=== PATIENT | male | born 1970 | race Caucasian/White ===

== ENCOUNTER 2020-07-22 08:54 | Outpatient (REF) | payer BC, SELFPAY ==
[2020-07-22 10:05] LABS: Hematocrit 47.6 % (42-52); Hemoglobin 16.3 g/dl (14.0-18.0); Mean Corpuscular HGB Conc 34.2 g/dl (31.0-36.0); Mean Corpuscular Hemoglobin 32.1 pg (27.0-33.0); Mean Corpuscular Volume 93.7 fL (80-98); Mean Platelet Volume 9.9 fL (9.4-12.4); Platelet Count 165 X10*3/uL (160-400); Red Blood Count 5.08 X10*6/uL (4.60-5.80); Red Cell Distribution Width 11.9 % (11.0-16.0); White Blood Count 4.8 X10*3/uL (4.8-10.8)
[2020-07-22 10:15] LABS: Estimated Average Glucose 88 mg/dL; Hemoglobin A1c % 4.7 %
[2020-07-22 10:38] LABS: Alanine Aminotransferase 33 U/L (0-40); Albumin Level 4.3 g/dL (3.5-5.0); Alkaline Phosphatase 50 U/L (39-117); Anion Gap 12 (12-20); Aspartate Amino Transferase 21 U/L (5-37); Blood Urea Nitrogen 19 mg/dL (9-16); Calcium 8.9 mg/dL (8.4-10.2); Carbon Dioxide 25 mmol/L (22-29); Chloride 108 mmol/L (96-108); Cholesterol 235 mg/dL; Estimated Glomerular Filt Rate > 60; Glucose Fasting 95 mg/dL (60-99); HDL Cholesterol 36 mg/dL; LDL Cholesterol Calculated 181 mg/dl; Potassium 4.2 mmol/L (3.3-5.1); Sodium 141 mmol/L (135-145); Total Protein 7.2 g/dL (6.5-8.0); Triglycerides 93 mg/dL
[2020-07-22 11:06] LABS: TSH reflex Free T4 0.84 uIU/mL (0.32-4.0)
== END 2020-07-22 08:55 | disposition home or self-care (01) ==
LOC: HO.LAB 08:54
PROVIDERS: PCP Physician Assistant; Visit Provider Physician Assistant
DX: I10 Essential (primary) hypertension (principal); Z13.1 Encounter for screening for diabetes mellitus; Z13.220 Encounter for screening for lipoid disorders; Z13.29 Encounter for screening for other suspected endocrine disorder
CPT/HCPCS: 36415; 80053; 80061; 83036; 84443; 85027

== ENCOUNTER → 2020-07-28 08:16 | Outpatient (REF) | payer BC, SELFPAY ==
--- NOTE | 2020-07-28 08:19 | CA_ITS ---
Acquisition Time: 2020-07-28 08:27:59 Total Exercise Time: 00:10:24 Test Indications: Chest Pain Medications: NONE Protocol: MORRIS Max HR: 160 BPM 92% of Pred: 173 BPM Max BP: 184/080 mmHG Max Work Load: 12.3 METS Exercise stress test using Morris protocol, total of 10 min 24 sec. METS 12.30, TAPHR up to 92 %. Pt tolerated well, denies any anginal sx. EKG with occ. PVC's. No ischemic changes seen during exercise or in recovery. Normotensive response to exercise. Test reviewed with Dr. Jenkins. Referred By: Azam Talavera Overread By:
== END ==
LOC: HO.CARD 08:16
PROVIDERS: Visit Provider Physician Assistant
DX: R07.89 Other chest pain (principal)
CPT/HCPCS: 93016; 93017; 93018

== ENCOUNTER → 2020-08-08 14:10 | Outpatient (BNVA) | payer BC, SELFPAY | PROVIDERS: PCP Physician Assistant; Visit Provider Nurse Practitioner Family ==

== ENCOUNTER 2020-09-13 10:06 | Day surgery (SDC) | payer BC, SELFPAY ==
[2020-09-06 14:52] VITALS: BMI 35.3
--- NOTE | 2020-09-08 15:06 | HO.ANESPROP2 ---
Documented by User: Fang Guthrie 09/08/20 15:06 HPI - Anesthesia Eval Consult details Narrative: 50yo M for Colonoscopy PMFSH Active Problems Active Problems: All Active Problems (Updated 09/06/20 @ 14:54 by Makenna Mathew) Annual physical exam (Acute) Family history of heart disease (Acute) Family history of colon cancer (Acute) Screening for diabetes mellitus (DM) (Acute) Screening for hypercholesterolemia (Acute) Screening for hypothyroidism (Acute) Atypical chest pain (Acute) Past Medical History Medical History Atypical chest pain Family History Family History Father Colon cancer Myocardial infarction Mother Alcohol abuse Multiple sclerosis Maternal Uncle Myocardial infarction Surgical History Surgical History History of knee surgery Hx of rhinoplasty Social History Social History Alcohol intake: current Alcohol intake frequency: holidays/special occasions only Smoking Status: Never smoker Advance Directives Information Provided: No Current occupational status: employed 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 Meds Allergies Allergy/AdvReac Type Severity Reaction Status Date / Time No Known Allergies Allergy Verified 08/08/20 14:11 Exam Exam Date and Time: September 08, 2020 1506 Height,Weight and Vital Signs: Height 5 ft 10 in Weight 111.584 kg Narrative Narrative: 07/2020 Exercise stress Protocol: WIN Max HR: 160 BPM 92% of Pred: 173 BPM Max BP: 184/080 mmHG Max Work Load: 12.3 METS Exercise stress test using Win protocol, total of 10 min 24 sec. METS 12.30, TAPHR up to 92 %. Pt tolerated well, denies any anginal sx. EKG with occ. PVC's. No ischemic changes seen during exercise or in recovery. Normotensive response to exercise. Assessment and Plan Assessment Anesthesia Assessment: Chart Reviewed Documented by User: Hillary Corona 09/13/20 11:09 [facility] Past Medical History Medical History Atypical chest pain Family History Family History Father Colon cancer Myocardial infarction Mother Alcohol abuse Multiple sclerosis Maternal Uncle Myocardial infarction Surgical History Surgical History History of knee surgery Hx of rhinoplasty Social History Social History Alcohol intake: current Alcohol intake frequency: holidays/special occasions only Smoking Status: Never smoker Advance Directives Information Provided: No Current occupational status: employed 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 Meds Allergies Allergy/AdvReac Type Severity Reaction Status Date / Time No Known Allergies Allergy Verified 08/08/20 14:11 Exam Airway Mallampati Class: II TM Dist: >3cm Neck ROM: Full Heart: RRR Lungs: CTA Assessment and Plan Assessment Anesthesia Assessment: Anesthesia Plan Discussed and Chart Reviewed Final Anesthetic Review NPO: Yes ASA Class: I Final Preanesthetic Review: Meds/Allgs Chart Reviewed, Consent Obtained/Reviewed and Anes Risks/Benef Reviewed Patient Risk: Low Procedure Risk: Low Anesthetic Plan Anesthetic Plan: MAC: Disposition: Standard PACU
[2020-09-13 10:33] VITALS: BP 140/87; PULSE 61; RESP 16; TEMP 36.2; O2SAT 96
[2020-09-13] MEDS: Lactated Ringers 1,000 ML 100 ML IVCONT (10:42)
--- NOTE | 2020-09-13 10:43 | PC.NURSE ---
Patient finished second half of prep this morning at 0600. States it was about 32oz and was finished by 0630. An[address] Corona notified. To proceed with procedure as scheduled.
--- NOTE | 2020-09-13 11:12 | MHC.SHP ---
Pre-Procedural Eval Section B Chief Complaint: Fhx of Colon Cancer Details of Present Illness: COLON CANCER SCREENING, FATHER WITH COLON CANCER IN HIS 50'S Relevant Family History (Specify if Yes): Yes Relevant Social History: None Present Medications: None Medical History: No relevant PMH History of Previous Operations: No relevant previous surgery Allergies: Allergies Allergy/AdvReac Type Severity Reaction Status Date / Time No Known Allergies Allergy Verified 08/08/20 14:11 Review of Systems Sugical H&P ROS: Negative: Constitution, Respiratory, Gastrointestinal, Musculoskeletal and Endocrine and Yes, Specify: Cardiovascular (Recent stress test: neg--atypical CP) Exam Surgical H&P Exam: Normal: HEENT, Normal: Heart, Normal: Lungs, Normal: Extremities, Normal: Abdomen and Normal: Skin Plan Diagnosis/Plan: Unchanged I have reviewed the history and physical and performed a pertinent physical examination on my patient. No changes have occurred unless specified.yes
[2020-09-13 11:46] VITALS: BP 121/74; PULSE 65; RESP 18; TEMP 36.5; O2SAT 97
--- NOTE | 2020-09-13 11:46 | PM.OP ---
Brief Operative Note Date of Service: 09/13/20 Pre-op diagnosis: COLON CANCER SCREENING: HIGH RISK-FATHER WITH COLON CANCER. Post-op diagnosis: other (NEGATIVE EXAM) Procedure: COLONOSCOPY Implants: NONE Surgeon: Magnolia Ayala MD Anesthesia: MAC (MD CINDY) Estimated blood loss (mL): 0 Pathology: none sent Condition: stable Disposition: PACU
--- NOTE | 2020-09-13 11:48 | PM.OP ---
Brief Operative Note Date of Service: 09/13/20 Surgeon: Magnolia Ayala MD this was pulled up in error, already completed. Estimated blood loss (mL): 0
--- NOTE | 2020-09-13 11:50 | W.PM.OPN ---
Operative Note Operative Note Date of Service: 09/13/20 Narrative: Pre-op diagnosis: COLON CANCER SCREENING: HIGH RISK-FATHER WITH COLON CANCER. Post-op diagnosis: other (NEGATIVE EXAM) Procedure: COLONOSCOPY Implants: NONE Surgeon: Magnolia Ayala MD Anesthesia: MAC (MD CINDY) FINDINGS: NAVID: Prostate normal Adult slim colonoscope introduced without difficulty advanced through sigmoid, descending, transverse colon through hepatic flexure and into ascending colon. With gentle repositioning of scope cecum was entered--Appendiceal orifice was seen, ileocecal valve was seen. PREP: Good to excellent. Slow withdrawal of scope. Good rotational views, no lesions were seen. ARV was clear. Estimated blood loss (mL): 0 Pathology: none sent Condition: stable Disposition: PACU PLAN: REPEAT SCREENING IN 5 YEARS DUE TO FAMILY HX IN HIS FATHER.
[2020-09-13 12:00] VITALS: BP 118/75; PULSE 60; RESP 16; TEMP 36.5; O2SAT 96
== END 2020-09-13 12:31 | disposition home or self-care (01) ==
PROVIDERS: PCP Physician Assistant; Visit Provider Internal Medicine Gastroenterology
PROC: 0DJD8ZZ Inspection of Lower Intestinal Tract, Via Natural or Artificial Opening Endoscopic (ICD-10-PCS; CPT 45378; principal; 2020-09-13 11:50)
DX: Z12.11 Encounter for screening for malignant neoplasm of colon (principal); Z80.0 Family history of malignant neoplasm of digestive organs
CPT/HCPCS: 45378

== ENCOUNTER 2021-04-06 21:49 | Emergency (ER) | payer BC, SELFPAY ==
--- NOTE | 2021-04-06 | ECG_ITS ---
Test Reason : CP Blood Pressure : / mmHG Vent. Rate : 083 BPM Atrial Rate : 083 BPM P-R Int : 140 ms QRS Dur : 096 ms QT Int : 378 ms P-R-T Axes : 054 -58 119 degrees QTc Int : 444 ms Normal sinus rhythm Left anterior fascicular block Moderate voltage criteria for LVH, may be normal variant ( R in aVL , Junior product ) T wave abnormality, consider anterolateral ischemia Abnormal ECG No previous ECGs available Referred By: Generic ED Physician Electronically Signed By:JOSESITO AU MD
--- NOTE | ~2021-04-06 | XR_ITS ---
EXAMINATION: XR CHEST CLINICAL INFORMATION: Chest pain COMPARISON: None TECHNIQUE: Frontal view of the chest was obtained. FINDINGS: Cardiac leads overlie the chest. The lungs are well expanded. There is no focal consolidation, edema, or effusion. No pneumothorax. The cardiomediastinal silhouette is within normal limits. No acute osseous abnormality. XR/XR chest 1V IMPRESSION: Clear lungs.
[2021-04-06 21:51] VITALS: BP 193/130; PULSE 92; RESP 18; TEMP 36.8; O2SAT 98; BMI 34.1
[2021-04-06 21:55] VITALS: BP 179/115
--- NOTE | 2021-04-06 21:57 | PC.NURSE ---
bp done initially on left arm then repeated on rt arm
[2021-04-06 22:00] VITALS: BP 165/113; PULSE 97; RESP 18; TEMP 36.8; O2SAT 94
--- NOTE | 2021-04-06 22:21 | ED_ITS ---
HPI - Chest Pain General Chief Complaint: Chest Pain Stated Complaint: cp Time Seen by Provider: 04/06/21 22:04 Source: patient Mode of arrival: ambulatory History of Present Illness HPI narrative: 50-year-old male presents with constant chest pain/pressure that is radiating into his left arm and started while he was sitting watching TV and he rated at a 9/10 not associated with dizziness, diaphoresis, nausea, but states he has been having associated shortness of breath. He states the pain is now at 3/10 but in this is that over the past 2 weeks he was having similar pain that initially was only occurring during exertion however over the past week this has been occurring while at rest. He was recently prescribed a blood pressure medication as well as a statin that has not been picked up from the pharmacy yet. He does have a positive family history for MD in his father at a similar age. Related Data Previous Rx's Medication Instructions Recorded lisinopril 10 mg tablet 10 mg PO DAILY 30 Days #30 tab 04/04/21 simvastatin 20 mg tablet 20 mg PO DAILY 30 Days #30 tab 04/04/21 Allergies Allergy/AdvReac Type Severity Reaction Status Date / Time No Known Allergies Allergy Verified 04/06/21 21:51 Review of Systems Review of Systems: Pertinent positives and negatives as stated in HPI 10 point review of systems is otherwise negative. [facility] Past Medical History Source: nursing notes reviewed Medical History Atypical chest pain Surgical History History of knee surgery Hx of rhinoplasty Family History Family History Father Colon cancer Myocardial infarction Mother Alcohol abuse Multiple sclerosis Maternal Uncle Myocardial infarction Social History Social History Housing: House Alcohol intake: unknown Patient Tobacco Use Status: Never used Tobacco e-Cigarette/Vaping Use: Never Used Second Hand Smoke Exposure: No Use of substances other than those prescribed or required for medical reasons: No Advance Directives: No Advance Directives Information Provided: No Current occupational status: employed 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 Physical Exam Vital Signs: Vital Signs: Last Vital Signs Temp 98.3 F 04/06/21 22:00 Pulse 94 04/06/21 22:52 Resp 18 04/06/21 22:00 BP 156/93 H 04/06/21 22:52 Pulse Ox 94 04/06/21 22:00 Body Mass Index 34.1 VITAL SIGNS: Reviewed. GENERAL: Well developed, well nourished, in no acute distress. HEAD: Normocephalic/atraumatic EYES: PERRLA, EOMI LUNGS: Normal breath sounds. SpO2<98> CARDIOVASCULAR: Regular rate and rhythm without noted murmurs, no JVD or lower extremity edema. ABDOMEN: Soft, non-tender, non-distended with bowel sounds. SKIN: Inspection of the skin reveals no rashes NEUROLOGIC: Alert and oriented x 4. Course Course Course Narrative: History and clinical presentation concerning for EKG changes in the setting chest pain that would suggest at a minimum unstable angina/ACS with concerns for Q-waves in V2 for possible Wellens with as well as multiple T- wave inversions in V4/V5. Patient was provided with 324 mg of aspirin, placed on the EKG, labs were obtained. His blood pressure was noted to remain elevated in will be provided with medication to reduce the blood pressure and labs sent. Cardiology will be paged. Review of all investigations significant for elevated troponin Reevaluation(s) Reevaluation #1: Discussed the case with on-call Cardiology who recommends activating STEMI. Patient given aspirin, Brilinta, heparin. Time: 22:39 Reevaluation #2: Discussed case with p.m. see interventional cardiology. Recom mendation for sublingual nitro and if pain-free will go to CCU otherwise will go to the flue dust laborer. Recommends starting nitro drip Time: 22:42 MDM - Chest Pain Lab Data Result diagrams: 04/06/21 22:26 04/06/21 22:26 Labs: Lab Results 04/06/21 04/06/21 04/06/21 Range/Units 22:26 22:26 22:26 WBC 9.6 (4.8-10.8) X10*3/uL RBC 6.11 H (4.60-5.80) X10*6/uL Hgb 19.5 H (14.0-18.0) g/dl Hct 56.2 H (42.0-52.0) % MCV 92.0 (80.0-98.0) fL MCH 31.9 (27.0-33.0) pg MCHC 34.7 (31.0-36.0) g/dl RDW 12.2 (11.0-16.0) % Plt Count 185 (160-400) X10*3/uL MPV 9.5 (9.4-12.4) fL Immature Gran % (Auto) 0.3 (0.0-0.4) % Neut % (Auto) 56.9 (45-73) % Lymph % (Auto) 30.7 (20-40) % Lea % (Auto) 10.3 (2-11) % Eos % (Auto) 1.5 (0-4) % Baso % (Auto) 0.3 (0-2) % Lymph # (Auto) 3.0 (1.2-4.9) X10*3/uL Lea # (Auto) 1.0 (0.1-1.2) X10*3/uL Eos # (Auto) 0.1 (0.0-0.4) X10*3/uL Baso # (Auto) 0.0 (0.0-0.2) X10*3/uL Abs Immat Gran (auto) 0.03 (0.00-0.03) X10*3/uL Absolute Neuts (auto) 5.5 (2.0-8.3) x10*3/uL Absolute Nucleated RBC 0.000 (0.0-0.012) X10*3/uL Nucleated RBC % (auto) 0.0 (0.0-0.2) /100WBC PT 12.1 (9.9-13.0) SEC INR 1.1 (0.9-1.1) APTT 35.5 (24.1-38.0) SEC Sodium 138 (135-145) mmol/L Potassium 4.3 (3.3-5.1) mmol/L Chloride 101 (96-108) mmol/L Carbon Dioxide 27 (22-29) mmol/L Anion Gap 14 (12-20) BUN 15 (9-16) mg/dL Creatinine 1.22 (0.5-1.4) mg/dL Estim Creat Clear Calc 91.1 Estimated GFR > 60 Random Glucose 106 (60-115) mg/dL Calcium 9.5 D (8.4-10.2) mg/dL Total Bilirubin 0.8 (0.0-1.0) mg/dL AST 65 H (5-37) U/L ALT 33 (0-40) U/L Alkaline Phosphatase 60 (39-117) U/L Troponin I High Sens (<3.5-35.0) ng/L Total Protein 8.3 H (6.5-8.0) g/dL Albumin 4.5 (3.5-5.0) g/dL Urine Color Urine Appearance Urine pH (5.0-8.0) Ur Specific [place] (1.005-1.025) Urine Protein (NEG-TRACE) MG/DL Urine Glucose (UA) (NEG) MG/DL Urine Ketones (NEG) MG/DL Urine Blood (NEG) Urine Nitrite (NEG) Ur Leukocyte Esterase (NEG) Urine RBC (0) /HPF Urine WBC (0-4) /HPF Ur Squamous Epith Cells /LPF Calcium Oxalate Crystal /LPF Urine Bacteria /LPF Urine Yeast /HPF Ethyl Alcohol mg/dL COVID-19 (BRIT) (Negative) COVID-19 Clin Com 04/06/21 04/06/21 04/06/21 Range/Units 22:26 22:26 22:26 WBC (4.8-10.8) X10*3/uL RBC (4.60-5.80) X10*6/uL Hgb (14.0-18.0) g/dl Hct (42.0-52.0) % MCV (80.0-98.0) fL MCH (27.0-33.0) pg MCHC (31.0-36.0) g/dl RDW (11.0-16.0) % Plt Count (160-400) X10*3/uL MPV (9.4-12.4) fL Immature Gran % (Auto) (0.0-0.4) % Neut % (Auto) (45-73) % Lymph % (Auto) (20-40) % Lea % (Auto) (2-11) % Eos % (Auto) (0-4) % Baso % (Auto) (0-2) % Lymph # (Auto) (1.2-4.9) X10*3/uL Lea # (Auto) (0.1-1.2) X10*3/uL Eos # (Auto) (0.0-0.4) X10*3/uL Baso # (Auto) (0.0-0.2) X10*3/uL Abs Immat Gran (auto) (0.00-0.03) X10*3/uL Absolute Neuts (auto) (2.0-8.3) x10*3/uL Absolute Nucleated RBC (0.0-0.012) X10*3/uL Nucleated RBC % (auto) (0.0-0.2) /100WBC PT (9.9-13.0) SEC INR (0.9-1.1) APTT (24.1-38.0) SEC Sodium (135-145) mmol/L Potassium (3.3-5.1) mmol/L Chloride (96-108) mmol/L Carbon Dioxide (22-29) mmol/L Anion Gap (12-20) BUN (9-16) mg/dL Creatinine (0.5-1.4) mg/dL Estim Creat Clear Calc Estimated GFR Random Glucose (60-115) mg/dL Calcium (8.4-10.2) mg/dL Total Bilirubin (0.0-1.0) mg/dL AST (5-37) U/L ALT (0-40) U/L Alkaline Phosphatase (39-117) U/L Troponin I High Sens 2031.6 H* (<3.5-35.0) ng/L Total Protein (6.5-8.0) g/dL Albumin (3.5-5.0) g/dL Urine Color Urine Appearance Urine pH (5.0-8.0) Ur Specific [place] (1.005-1.025) Urine Protein (NEG-TRACE) MG/DL Urine Glucose (UA) (NEG) MG/DL Urine Ketones (NEG) MG/DL Urine Blood (NEG) Urine Nitrite (NEG) Ur Leukocyte Esterase (NEG) Urine RBC (0) /HPF Urine WBC (0-4) /HPF Ur Squamous Epith Cells /LPF Calcium Oxalate Crystal /LPF Urine Bacteria /LPF Urine Yeast /HPF Ethyl Alcohol < 10 mg/dL COVID-19 (BRIT) Negative (Negative) COVID-19 Clin Com See Note 04/06/21 Range/Units 22:39 WBC (4.8-10.8) X10*3/uL RBC (4.60-5.80) X10*6/uL Hgb (14.0-18.0) g/dl Hct (42.0-52.0) % MCV (80.0-98.0) fL MCH (27.0-33.0) pg MCHC (31.0-36.0) g/dl RDW (11.0-16.0) % Plt Count (160-400) X10*3/uL MPV (9.4-12.4) fL Immature Gran % (Auto) (0.0-0.4) % Neut % (Auto) (45-73) % Lymph % (Auto) (20-40) % Lea % (Auto) (2-11) % Eos % (Auto) (0-4) % Baso % (Auto) (0-2) % Lymph # (Auto) (1.2-4.9) X10*3/uL Lea # (Auto) (0.1-1.2) X10*3/uL Eos # (Auto) (0.0-0.4) X10*3/uL Baso # (Auto) (0.0-0.2) X10*3/uL Abs Immat Gran (auto) (0.00-0.03) X10*3/uL Absolute Neuts (auto) (2.0-8.3) x10*3/uL Absolute Nucleated RBC (0.0-0.012) X10*3/uL Nucleated RBC % (auto) (0.0-0.2) /100WBC PT (9.9-13.0) SEC INR (0.9-1.1) APTT (24.1-38.0) SEC Sodium (135-145) mmol/L Potassium (3.3-5.1) mmol/L Chloride (96-108) mmol/L Carbon Dioxide (22-29) mmol/L Anion Gap (12-20) BUN (9-16) mg/dL Creatinine (0.5-1.4) mg/dL Estim Creat Clear Calc Estimated GFR Random Glucose (60-115) mg/dL Calcium (8.4-10.2) mg/dL Total Bilirubin (0.0-1.0) mg/dL AST (5-37) U/L ALT (0-40) U/L Alkaline Phosphatase (39-117) U/L Troponin I High Sens (<3.5-35.0) ng/L Total Protein (6.5-8.0) g/dL Albumin (3.5-5.0) g/dL Urine Color YELLOW Urine Appearance CLEAR Urine pH 6.0 (5.0-8.0) Ur Specific [place] 1.025 (1.005-1.025) Urine Protein 2+ H (NEG-TRACE) MG/DL Urine Glucose (UA) NEG (NEG) MG/DL Urine Ketones NEG (NEG) MG/DL Urine Blood 2+ H (NEG) Urine Nitrite NEG (NEG) Ur Leukocyte Esterase NEG (NEG) Urine RBC 1-4 (0) /HPF Urine WBC 0 (0-4) /HPF Ur Squamous Epith Cells NONE /LPF Calcium Oxalate Crystal TRACE /LPF Urine Bacteria TRACE /LPF Urine Yeast 1+ /HPF Ethyl Alcohol mg/dL COVID-19 (BRIT) (Negative) COVID-19 Clin Com Discharge Plan Discharge Clinical Impression: ACS (acute coronary syndrome) Patient Disposition: Xfer Acute Care Hospital Transfer Details: ACS Prescriptions: No Action lisinopril 10 mg tablet 10 mg PO DAILY 30 Days Qty: 30 RF: 1 simvastatin 20 mg tablet 20 mg PO DAILY 30 Days Qty: 30 RF: 3 Interventions: Acute Care Transfer Worksheet (ED) Last Done: 04/06/21 23:08
[2021-04-06 22:33] LABS: MANUAL DIFF FLAG NO
[2021-04-06 22:34] LABS: Basophils Percent Auto 0.3 % (0-2); Eosinophils Absolute Auto 0.1 X10*3/uL (0.0-0.4); Eosinophils Percent Auto 1.5 % (0-4); Hemoglobin 19.5 g/dl (14.0-18.0); Imm Gran Abs Auto 0.03 X10*3/uL (0.00-0.03); Imm Gran Pct Auto 0.3 % (0.0-0.4); Lymphocytes Percent Auto 30.7 % (20-40); Mean Corpuscular HGB Conc 34.7 g/dl (31.0-36.0); Mean Corpuscular Hemoglobin 31.9 pg (27.0-33.0); Mean Platelet Volume 9.5 fL (9.4-12.4); Monocytes Percent Auto 10.3 % (2-11); Neutrophils Absolute Auto 5.5 x10*3/uL (2.0-8.3); Neutrophils Percent Auto 56.9 % (45-73); Platelet Count 185 X10*3/uL (160-400); Red Blood Count 6.11 X10*6/uL (4.60-5.80); Red Cell Distribution Width 12.2 % (11.0-16.0); White Blood Count 9.6 X10*3/uL (4.8-10.8)
[2021-04-06 22:40] LABS: INTERNATIONAL NORM RATIO 1.1 (0.9-1.1); Prothrombin Time 12.1 SEC (9.9-13.0)
[2021-04-06 22:41] LABS: Hematocrit 56.2 % (42.0-52.0)
[2021-04-06] MEDS: Ticagrelor 90 MG TABLET 180 MG PO (22:41)
[2021-04-06] MEDS: Heparin Sodium,Porcine 5,000 UNIT/ML VIAL 5000 UNIT IVPUSH (22:41)
[2021-04-06 22:43] LABS: Partial Thromboplastin Time 35.5 SEC (24.1-38.0)
[2021-04-06 22:44] LABS: Appearance Urine CLEAR; Color Urine YELLOW; Glucose Urine UA NEG (NEG); Leukocyte Esterase Urine NEG (NEG); Nitrite Urine NEG (NEG); Specific Gravity - Urine 1.025 (1.005-1.025); UACC Culture Trigger NO; Urine Blood 2+ (NEG); Urine Ketones NEG (NEG); Urine Protein 2+ MG/DL (NEG-TRACE)
[2021-04-06 22:49] LABS: COVID-19 Test Negative (Negative)
[2021-04-06] MEDS: Aspirin 81 MG TAB.CHEW 324 MG PO (22:49)
[2021-04-06 22:51] LABS: Alanine Aminotransferase 33 U/L (0-40); Albumin Level 4.5 g/dL (3.5-5.0); Alkaline Phosphatase 60 U/L (39-117); Anion Gap 14 (12-20); Aspartate Amino Transferase 65 U/L (5-37); Bilirubin Total 0.8 mg/dL (0.0-1.0); Blood Urea Nitrogen 15 mg/dL (9-16); Calcium 9.5 mg/dL (8.4-10.2); Carbon Dioxide 27 mmol/L (22-29); Chloride 101 mmol/L (96-108); Creatinine Clr Calc Pharmacy 91.1; Estimated Glomerular Filt Rate > 60; Glucose Random 106 mg/dL (60-115); Potassium 4.3 mmol/L (3.3-5.1); Sodium 138 mmol/L (135-145); Total Protein 8.3 g/dL (6.5-8.0)
[2021-04-06 22:52] VITALS: BP 156/93; PULSE 94
[2021-04-06] MEDS: Nitroglycerin 0.4 MG TAB.SUBL SUBLINGUAL (22:52)
[2021-04-06 22:56] LABS: WBC Urine 0 /HPF (0-4)
[2021-04-06 22:57] LABS: Ethanol < 10 mg/dL
[2021-04-06 22:57] LABS: Bacteria Urine TRACE /LPF; Calcium Oxalate Crystals Urine TRACE /LPF
[2021-04-06 22:59] LABS: Troponin-I High Sensitivity 2031.6 ng/L (<3.5-35.0)
[2021-04-06] MEDS: Nitroglycerin/D5W 100 MG/250 ML INFUS..BTL IVCONT (23:18)
--- NOTE | 2021-04-06 23:19 | PC.NURSE ---
THE PT PRESENTED TO THE ed VIA WAITING ROOM FOR EVALUATION OF INTERMITTENT CHEST PAIN X 2 WEEKS, WORSE TONIGHT WHILE AT REST IN BED. ON ARRIVAL HE IS ALERT AND ORIENTED X 3, FFACIAL FLUSHING NOTED, CHEST PAIN WIH RADIATION TO l AXILLA 2/10, RESPIRATIONS NON-LABORED, SPEECH CLEAR AND APPROPPRIATE. IS AT THE BEDSIDE WITH PT. IV ACCESS X 2 AND LABS OBTAINED AND SENT. NSR ON BEDSIDE MONITOR, RATE 90'S WITHOUT ECTOPY NOTED.AFTER IT WAS FOUND THAT THE PT IS HAVING A STEMI HE WAS ADMI NISTERED BRILINTA, HEPARIN IV BOLUS, HEPARING GTT, ASA 324MG, AND NTG GTT (INITIATED T 5MCG/MIN). PT DEPARTED ED AT THIS TIME VIA [facility] EN ROUTE TO [facility]. NURSING REPORT GIVEN TO LOVE HALLMAN AT [facility].
--- NOTE | 2021-04-07 | ECG_ITS ---
Test Reason : CHEST PAIN/REPEAT Blood Pressure : / mmHG Vent. Rate : 082 BPM Atrial Rate : 082 BPM P-R Int : 146 ms QRS Dur : 100 ms QT Int : 376 ms P-R-T Axes : 063 -61 127 degrees QTc Int : 439 ms Normal sinus rhythm Left anterior fascicular block Moderate voltage criteria for LVH, may be normal variant ( R in aVL , Junior product ) ST elevation in Septal leads ST & T wave abnormality, consider lateral ischemia Abnormal ECG When compared with ECG of 06-APR-2021 22:01, ST more elevated in Septal leads T wave inversion less evident in Lateral leads Referred By: Hillary Balderas Electronically Signed By:JOSESITO AU MD
--- NOTE | 2021-04-07 | ECG_ITS ---
Test Reason : CHEST PAIN/REPEAT Blood Pressure : / mmHG Vent. Rate : 097 BPM Atrial Rate : 097 BPM P-R Int : 148 ms QRS Dur : 098 ms QT Int : 376 ms P-R-T Axes : 051 -67 108 degrees QTc Int : 477 ms Normal sinus rhythm Left anterior fascicular block Minimal voltage criteria for LVH, may be normal variant ( [place] product ) Septal infarct (cited on or before 06-APR-2021) T wave abnormality, consider anterolateral ischemia Abnormal ECG When compared with ECG of 06-APR-2021 22:36, ST less elevated in Septal leads T wave inversion more evident in Anterolateral leads Referred By: Hillary Balderas Electronically Signed By:JOSESITO AU MD
[2021-04-07 00:53] LABS: Amphetamine Screen Urine Not Detected (Not Detect); Barbiturates, Urine Not Detected (Not Detect); Benzodiazepines Screen Urine Not Detected (Not Detect); Cannabinoid Screen Urine Not Detected (Not Detect); Cocaine Screen Urine Not Detected (Not Detect); Fentanyl, urine Not Detected (Not Detect); Opiate Screen Urine Not Detected (Not Detect); Phencyclidine Screen Urine Not Detected (Not Detect)
== END 2021-04-06 23:15 | disposition short-term general hospital (02) ==
PROVIDERS: Emergency Provider Student in an Organized Health Care Education/Training Program; PCP Physician Assistant
DX: I24.9 Acute ischemic heart disease, unspecified (principal); Z82.49 Family history of ischemic heart disease and other diseases of the circulatory system; Z79.899 Other long term (current) drug therapy; Z20.822 Contact with and (suspected) exposure to COVID-19
CPT/HCPCS: 36415; 71045; 80053; 80307; 81001; 82077; 84484; 85025; 85610; 85730; 87635; 93005; 96374; 96376; 99285

== ENCOUNTER → 2021-05-22 13:30 | Outpatient (BNVA) | payer BC, SELFPAY | PROVIDERS: PCP Physician Assistant; Referring Provider Physician Assistant; Visit Provider Internal Medicine Cardiovascular Disease ==

== ENCOUNTER → 2021-07-13 07:22 | Outpatient (REF) | payer BC, SELFPAY ==
--- NOTE | 2021-07-13 07:35 | CA_ITS ---
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 There is normal left ventricular wall thickness. The left ventricular systolic function is low normal. The visually estimated ejection fraction is between 50-55%. - Normal right ventricular cavity size and systolic function. Findings Left Ventricle Normal left ventricular cavity size. There is normal left ventricular wall thickness. The left ventricular systolic function is low normal. The visually estimated ejection fraction is between 50-55%. Regional wall motion abnormalities can not be excluded due to suboptimal endocardial definition. Diastolic function is normal for age. Right Ventricle Normal right ventricular cavity size and systolic function. Pericardium/Pleural There is no evidence of pericardial effusion. Prior Study Comparison No prior study available for comparison. Measurements 2D Linear Measurements IVSd: 1.07 0.6-0.9/0.6-1.0 cm LVIDd: 5.81 3.9-5.3/4.2-5.9 cm LVIDd Index: 2.79 2.4-3.2/2.2-3.1 cm/m2 LVIDs: 3.83 2.0-3.6 cm LVPWd: 1.03 0.7-1.1 cm LV Mass: 310.74 67-162/88-224 g LV Mass Index: 149.40 43-95/49-115 g/m2 2D Systolic Function EF 4C: 59.40 >55% EF 2C: 54.20 >55% Mitral Valve MV Pk E: 0.52 MV PK A: 0.45 MV Decel Time: 288.00 E/A: 1.20 E'Lateral: 12.70 E'Medial: 8.27 E/E' Med: 6.30 E/E' Lat: 4.10 PHT: 84.00 MVA PHT: 2.62 Decel [place]: 1.82 Diastolic Function MV Pk E: 0.52 MV Pk A: 0.45 E/A: 1.20 E'Medial: 8.27 E/E' Med: 6.30 E' Laterial: 12.70 E/E' Lat: 4.10 Updated in Other Vendor System with Status of Final Chris Rodrigues MD electronically signed on 07/13/2021 12:55:50 PM with status of Final
== END ==
LOC: HO.CARD 07:22
PROVIDERS: PCP Physician Assistant; Visit Provider Internal Medicine Cardiovascular Disease
DX: I25.5 Ischemic cardiomyopathy (principal)
CPT/HCPCS: 93308

== ENCOUNTER → 2021-08-21 13:20 | Outpatient (BNVA) | payer BC, SELFPAY | PROVIDERS: PCP Physician Assistant; Referring Provider Physician Assistant; Visit Provider Internal Medicine Cardiovascular Disease | DX: I10 Essential (primary) hypertension (principal); I21.4 Non-ST elevation (NSTEMI) myocardial infarction; I25.5 Ischemic cardiomyopathy; Z98.61 Coronary angioplasty status; Z79.899 Other long term (current) drug therapy | CPT/HCPCS: 99212 ==

== ENCOUNTER → 2022-05-07 15:06 | Outpatient (BNVA) | payer SELFPAY | PROVIDERS: PCP Physician Assistant; Referring Provider Physician Assistant; Visit Provider Internal Medicine Cardiovascular Disease | DX: I25.5 Ischemic cardiomyopathy (principal); I10 Essential (primary) hypertension; I21.4 Non-ST elevation (NSTEMI) myocardial infarction; Z98.61 Coronary angioplasty status | CPT/HCPCS: 93005; 99212 ==

== ENCOUNTER 2023-03-11 09:06 | Outpatient (AMB) | payer OTHER, SELFPAY ==
[2023-03-11 09:09] VITALS: BP 130/82; PULSE 64; BMI 34.3
--- NOTE | 2023-03-11 09:09 | A.OFFVIS_ITS ---
Intake Vital Signs 03/11/23 09:09 Height 5 ft 10 in Weight 238 lb 15.697 oz BMI 34.3 BP 130/82 Blood Pressure Location Lt brachial Position Sitting Pulse 64 Pulse Source Pulse Oximeter Intake Visit Reasons: 3 mth fu (KM) Intake Note: 3mth patient having s/b and some chest discomfort Allergies No Known Allergies Allergy (Verified 03/11/23 09:11) Medication List - Last Reconciled 03/11/23 by Alycia Guevara NP-C aspirin (Adult Low Dose Aspirin) 81 mg PO DAILY atorvastatin 80 mg PO BEDTIME clopidogrel 75 mg PO DAILY metoprolol succinate ER 25 mg PO DAILY valsartan 40 mg PO DAILY HPI 3 mth fu (KM) HPI Details Manjinder is a 52-year-old male with past medical history of hypertension, hyperlipidemia, obesity who had NSTEMI 03/2021 with LAD stenosis, TAWANA placed, ischemic cardiomyopathy with improvement in EF who now presents for follow-up. Today he reports that he has been doing well since his last visit 05/07/2022. He denies any exertional chest discomfort or shortness of breath. He says he was hit in the chest with a football recently and has some right-sided discomfort with deep inspiration. 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 He tolerates physical activity well. No palpitations, presyncope, syncope, PND, orthopnea or edema. Taking meds as directed. 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 Review of Systems Const All systems reviewed & are unremarkable except as noted in HPI and below ENT Details: Chest localized discomfort with deep inspiration. Believes he was hit by football. Denies dizziness Card Denies chest pain, Denies chest pain at rest, Denies chest pain with activity, Denies rapid heart rate, Denies pedal edema, Denies edema, Denies leg edema, Denies lightheadedness, Denies palpitations, Denies dyspnea, Denies dyspnea on exertion and Denies orthopnea Resp Denies cough, Denies dyspnea and Denies dyspnea on exertion GI Denies hematochezia and Denies change in stool character Musc Denies abnormal gait, Reports limited range of motion, Reports muscle cramps, Denies muscle weakness, Denies numbness, Denies radiating pain into limb, Denies stiffness and Denies tingling Neuro Denies abnormal gait, Denies dizziness, Denies numbness and Denies tingling Endo Denies palpitations Physical Exam Vital Signs: Last Vital Signs Pulse 64 03/11/23 09:09 BP 130/82 03/11/23 09:09 BMI result Body Mass Index 34.3 Const General: cooperative, healthy appearing, comfortable and no acute distress Orientation/consciousness: patient oriented x3 Neck Neck: Yes normal visual inspection and Yes no JVD Resp Effort & Inspection: normal respiratory effort Auscultation: clear to auscultation bilaterally, no crackles, no rales, no rhonchi and no wheezes Cardio Jugular venous distension: no JVD Rate: regular rate Rhythm: regular rhythm Heart sounds: S1 normal heart sound present, S2 normal heart sound present, no gallops, no murmurs and no rubs Peripheral pulses: Peripheral pulses 2+ throughout GI Inspection: Yes normal to inspection Neuro General: patient oriented x3 Extrem General: Yes normal to inspection Psych Appearance: grossly normal Mental Status: mental status grossly normal Speech and movement: Normal speech and movement present Office Procedures EKG Details: Today, read by me, sinus bradycardia, left anterior fascicular block, nonspecific T-wave abnormality, rate 57 [id number], Complete Assessment & Plan Assessment & Plan (1) NSTEMI (non-ST elevated myocardial infarction): Code(s): I21.4 - Non-ST elevation (NSTEMI) myocardial infarction Plan: NSTEMI 03/2021. Underwent cardiac catheterization showing severe proximal LAD stenosis, TAWANA placed. Echocardiogram at that time showed EF 25-30%, wall motion abnormality in the LAD territory. He was put on dual anti-platelet therapy, high-dose atorvastatin, metoprolol, valsartan. Repeat echocardiogram done 07/13/21 showed EF 50-55%, regional wall motion abnormality could not be excluded, normal RV. Today he reports he has been feeling well with no anginal sounding symptoms. 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 He says he is going to the gym routinely. EKG today shows sinus rhythm with nonspecific T-wave abnormality noted. In the absence of symptoms no further testing needed at present. He has no clinical signs indicating decompensated heart failure. Signs and symptoms of angina, heart failure reviewed with him. Will continue current med management including aspirin, high-dose atorvastatin, metoprolol and valsartan. Will check with his primary master naval parachutist regarding stop of Plavix at this time. Cardiology follow- up in 1 year, sooner if needed. ER care if needed for any concerning symptoms. (2) Ischemic cardiomyopathy: Code(s): I25.5 - Ischemic cardiomyopathy Plan: Improved to low normal as above (3) H/O cardiac catheterization: Comment: 04/07/2021, proximal LAD 90% stenosis, TAWANA placed, 1st RPL 70% stenosis Code(s): Z98.890 - Other specified postprocedural states (4) HTN (hypertension): Code(s): I10 - Essential (primary) hypertension Qualifiers: Hypertension type: primary hypertension Qualified Code(s): I10 - Essential (primary) hypertension Plan: Well controlled at present. No med changes made. (5) HLD (hyperlipidemia): Code(s): E78.5 - Hyperlipidemia, unspecified Qualifiers: Hyperlipidemia type: mixed hyperlipidemia Qualified Code(s): E78.2 - Mixed hyperlipidemia Orders: Orders Complete Blood Count Auto Diff Today I21.4 - Non-ST elevation (NSTEMI) myocardial infarction Comprehensive Met. Panel Today E78.5 - Hyperlipidemia, unspecified, I21.4 - Non- ST elevation (NSTEMI) myocardial infarction Lipid Panel Today I21.4 - Non-ST elevation (NSTEMI) myocardial infarction, I25.5 - Ischemic cardiomyopathy Coding Level of Care Code Est Pt Level 4 (25844) Diagnoses NSTEMI (non-ST elevated myocardial infarction) I21.4 Ischemic cardiomyopathy I25.5 H/O cardiac catheterization Z98.890 Primary hypertension I10 Hypertension type: primary hypertension Mixed hyperlipidemia E78.2 Hyperlipidemia type: mixed hyperlipidemia CPT Codes EKG - CPT: 77332-[id number], Complete ([id number]) Time Spent (min) 28
== END 2023-03-11 10:00 | disposition home or self-care (01) ==
PROVIDERS: PCP Physician Assistant; Visit Provider Nurse Practitioner Family
DX: I21.4 Non-ST elevation (NSTEMI) myocardial infarction (principal); I25.5 Ischemic cardiomyopathy; Z98.890 Other specified postprocedural states; I10 Essential (primary) hypertension; E78.2 Mixed hyperlipidemia
CPT/HCPCS: 93010; 99214

== ENCOUNTER 2023-03-11 09:06 | Outpatient (REF) | payer OTHER, SELFPAY ==
[2023-03-11 10:09] LABS: MANUAL DIFF FLAG NO
[2023-03-11 10:23] LABS: Basophils Percent Auto 0.2 % (0-2); Eosinophils Absolute Auto 0.1 X10*3/uL (0.0-0.4); Eosinophils Percent Auto 1.9 % (0-4); Hematocrit 44.6 % (42.0-52.0); Hemoglobin 15.1 g/dl (14.0-18.0); Imm Gran Abs Auto 0.01 X10*3/uL (0.00-0.03); Imm Gran Pct Auto 0.2 % (0.0-0.4); Lymphocytes Absolute Auto 1.5 X10*3/uL (1.2-4.9); Lymphocytes Percent Auto 35.3 % (20-40); Mean Corpuscular HGB Conc 33.9 g/dl (31.0-36.0); Mean Corpuscular Hemoglobin 31.5 pg (27.0-33.0); Mean Corpuscular Volume 92.9 fL (80.0-98.0); Monocytes Absolute Auto 0.4 X10*3/uL (0.1-1.2); Monocytes Percent Auto 9.7 % (2-11); Neutrophils Absolute Auto 2.2 x10*3/uL (2.0-8.3); Neutrophils Percent Auto 52.7 % (45-73); Platelet Count 154 X10*3/uL (160-400); Red Cell Distribution Width 11.9 % (11.0-16.0); White Blood Count 4.1 X10*3/uL (4.8-10.8)
[2023-03-11 11:32] LABS: Alanine Aminotransferase 29 U/L (0-40); Albumin Level 4.3 g/dL (3.5-5.0); Alkaline Phosphatase 48 U/L (39-117); Anion Gap 13 (12-20); Aspartate Amino Transferase 21 U/L (5-37); Bilirubin Total 0.9 mg/dL (0.0-1.0); Blood Urea Nitrogen 18 mg/dL (9-16); Calcium 9.4 mg/dL (8.4-10.2); Carbon Dioxide 26 mmol/L (22-29); Chloride 106 mmol/L (96-108); Cholesterol 173 mg/dL (<200); Estimated Glomerular Filt Rate > 60; Glucose Random 105 mg/dL (60-115); HDL Cholesterol 47 mg/dL (>40); LDL Cholesterol Calculated 101 mg/dL (<100); Potassium 4.6 mmol/L (3.3-5.1); Sodium 140 mmol/L (135-145); Total Protein 7.4 g/dL (6.5-8.0); Triglycerides 125 mg/dL (<150)
== END 2023-03-11 09:07 | disposition home or self-care (01) ==
LOC: HO.LAB 09:06
PROVIDERS: PCP Physician Assistant; Visit Provider Nurse Practitioner Family
DX: I21.4 Non-ST elevation (NSTEMI) myocardial infarction (principal); I25.5 Ischemic cardiomyopathy; I10 Essential (primary) hypertension; E78.2 Mixed hyperlipidemia; Z98.890 Other specified postprocedural states
CPT/HCPCS: 36415; 80053; 80061; 85025; 93005

== ENCOUNTER 2024-03-11 08:59 | Outpatient (AMB) | payer OTHER, SELFPAY ==
[2024-03-11 09:04] VITALS: BP 110/72; PULSE 68; BMI 33.3
--- NOTE | 2024-03-11 09:04 | A.OFFVIS_ITS ---
Vital Signs 03/11/24 09:04 Height 5 ft 10 in Weight 231 lb 14.821 oz BMI 33.3 BP 110/72 Blood Pressure Location Lt brachial Position Sitting Pulse 68 Pulse Source Monitor Intake Visit Reasons: 1 yr f/up Intake Note: 1 yr f/up Scrum Master Required: No Accompanied by: Self / Same As Patient Allergies No Known Allergies Allergy (Verified 03/11/23 09:11) Medication List - Last Reconciled 03/11/24 by Chris Rodrigues MD aspirin (Adult Low Dose Aspirin) 81 mg PO DAILY atorvastatin 80 mg PO BEDTIME clopidogrel 75 mg PO DAILY metoprolol succinate ER 25 mg PO DAILY valsartan 40 mg PO DAILY HPI Comments Details: Pleasant 53-year-old gentleman who is here for follow-up. He was seen at [facility] when he presented with NSTEMI and had LAD territory wall motion abnormality with ejection fraction 25-30%. He was taken for cardiac catheterization which showed severe proximal LAD stenosis which was treated with a drug-eluting stent. He has been on aspirin and Plavix. Repeat echocardiography has shown ejection fraction of 50-55%. 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 No signs of heart failure. Clinically stable. 03/11/2024: He is here for follow-up. He has no chest discomfort shortness of breath with activities. Continues to be stable. Blood pressure well controlled. EKGs unchanged. He is taking aspirin and Plavix. We discussed about stopping aspirin and continuing Plavix monotherapy from here onwards. 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 Review of Systems Const Denies chills, Denies fatigue, Denies fever(s), Denies frequent falls, Denies weakness, Denies weight gain and Denies weight loss ENT Denies dizziness Card Denies chest pain, Denies leg edema, Denies lightheadedness, Denies palpitations, Denies dyspnea and Denies dyspnea on exertion Resp Denies cough, Denies dyspnea and Denies dyspnea on exertion GI Denies hematochezia Musc Denies abnormal gait, Denies muscle weakness, Denies numbness, Denies radiating pain into limb and Denies tingling Neuro Denies abnormal gait, Denies dizziness, Denies frequent falls, Denies numbness, Denies tingling and Denies weakness Endo Denies fatigue and Denies palpitations Physical Exam Vital Signs: Last Vital Signs Pulse 68 03/11/24 09:04 BP 110/72 03/11/24 09:04 BMI result Body Mass Index 33.3 GENERAL APPEARANCE: in no acute distress, pleasant. NECK: no carotid bruit, no jugular venous distention. SKIN: no suspicious lesions, warm and dry. HEART: no murmurs, regular rate and rhythm. LUNGS: clear to auscultation bilaterally. ABDOMEN: soft, nontender. EXTREMITIES: no edema. PERIPHERAL PULSES: equal. NEUROLOGIC: No gross deficits, AAO X 3 Office Procedures EKG Details: Sinus rhythm 68 beats per minute, left anterior fascicular block, T-wave inversions inferiorly, QTC 401 milliseconds. [id number], Complete Assessment & Plan Assessment & Plan (1) Stable angina: Code(s): I20.89 - Other forms of angina pectoris Category: Medical (2) HLD (hyperlipidemia): Code(s): E78.5 - Hyperlipidemia, unspecified Category: Medical Qualifiers: Hyperlipidemia type: mixed hyperlipidemia Qualified Code(s): E78.2 - Mixed hyperlipidemia (3) HTN (hypertension): Code(s): I10 - Essential (primary) hypertension Category: Medical Qualifiers: Hypertension type: primary hypertension Qualified Code(s): I10 - Essential (primary) hypertension Plan Pleasant 53-year-old gentleman who is here for follow-up. He has history of coronary artery disease with LAD plaque rupture with acute coronary syndrome and severe ischemic cardiomyopathy. He was treated with drug-eluting stent with improvement in ejection fraction to 50-55%. Clinically has been doing well and has no symptoms. Blood pressure is well controlled. Same medications for now with exception of aspirin which will be discontinued. He will take Plavix monotherapy. Last LDL cholesterol was 101 and his target is less than 70 and ideally less than 55. We will check a fasting lipid panel. Follow-up with us in 1 year. Thank you for allowing me to participate in the care of your patient. Please feel free to contact me if you have any questions. Orders: Orders Lipid Panel Today E78.2 - Mixed hyperlipidemia Medications: Discontinued aspirin (Adult Low Dose Aspirin) Discontinued Reason: Doctor's Order 81 mg PO DAILY 90 tabs 1RF Coding Level of Care Code Est Pt Level 4 (80822) Diagnoses Stable angina I20.89 Mixed hyperlipidemia E78.2 Hyperlipidemia type: mixed hyperlipidemia Primary hypertension I10 Hypertension type: primary hypertension CPT Codes EKG - CPT: [id number]-[id number], Complete ([id number])
== END 2024-03-11 09:18 | disposition home or self-care (01) ==
PROVIDERS: PCP Physician Assistant; Visit Provider Internal Medicine Cardiovascular Disease
DX: I20.89 Other forms of angina pectoris (principal); E78.2 Mixed hyperlipidemia; I10 Essential (primary) hypertension
CPT/HCPCS: 93010; 99214

== ENCOUNTER → 2024-03-11 08:59 | Outpatient (BNVA) | payer OTHER, SELFPAY | PROVIDERS: PCP Physician Assistant; Visit Provider Internal Medicine Cardiovascular Disease | DX: I20.89 Other forms of angina pectoris (principal); E78.2 Mixed hyperlipidemia; I10 Essential (primary) hypertension; I25.2 Old myocardial infarction; Z79.02 Long term (current) use of antithrombotics/antiplatelets; Z79.82 Long term (current) use of aspirin | CPT/HCPCS: 93005 ==

== ENCOUNTER 2024-03-17 08:23 | Outpatient (REF) | payer OTHER, SELFPAY ==
[2024-03-17 09:31] LABS: Cholesterol 118 mg/dL (<200); HDL Cholesterol 38 mg/dL (>40); LDL Cholesterol Calculated 57 mg/dL (<100); Triglycerides 118 mg/dL (<150)
== END 2024-03-17 08:24 | disposition home or self-care (01) ==
LOC: HO.LAB 08:23
PROVIDERS: PCP Physician Assistant; Visit Provider Internal Medicine Cardiovascular Disease
DX: E78.2 Mixed hyperlipidemia (principal)
CPT/HCPCS: 36415; 80061